=== PATIENT | male | born 1980 | race American Indian/Alaskan Native ===

== ENCOUNTER 2022-02-23 23:13 | Emergency (ER) | payer SELFPAY ==
[2022-02-24 05:22] LABS: Color,Urine Yellow (Yellow)
[2022-02-24 05:24] LABS: Mucus,Urine FEW /HPF; WBC,Urine < 1.0 /HPF (0.0-6.0)
[2022-02-24 05:25] LABS: Amphetamine Screen,Urine Negative; Benzodiazepines Screen,Urine Negative; Cocaine Screen,Urine Negative; Methadone Screen,Urine Negative; Opiate Screen,Urine Negative
[2022-02-24 05:32] LABS: Basophils % (Auto) 0.7 % (0.0-1.8); Eosinophils # (Auto) 0.3 K/mm3 (0.0-0.4); Hematocrit 48.3 % (35.5-45.6); Hemoglobin 16.3 gm/dl (11.8-15.2); Lymphocytes # (Auto) 1.7 K/mm3 (1.2-5.4); Lymphocytes % (Auto) 24.1 % (13.4-35.0); Mean Corpuscular HGB Conc 34 % (32-34); Mean Corpuscular Volume 93 fl (84-94); Monocytes # (Auto) 0.6 K/mm3 (0.0-0.8); Monocytes % (Auto) 9.3 % (0.0-7.3); Platelet Count 302 K/mm3 (140-440); Red Blood Count 5.22 M/mm3 (3.65-5.03); Red Cell Distribution Width 13.9 % (13.2-15.2)
[2022-02-24 05:39] LABS: BUN/Creatinine Ratio 10; Blood Urea Nitrogen 10 mg/dL (9-20); Calcium 11.1 mg/dL (8.4-10.2); Hemolysis Index 20
[2022-02-24 05:47] LABS: Cannabinoid Screen,Urine Positive
--- NOTE | 2022-02-24 07:56 | Emergency Department Report ---
HPI - General Chief Complaint: Psych Time Seen by Provider: 02/24/22 07:43 - HPI HPI: Room 15 The patient is a 41-year-old male present with chief complaint of "I was not thinking right." Patient states since yesterday "I did not know if I wanted to hurt myself or hurt someone else." Patient denies any attempts at harming himself. Patient denies having a plan to hurt himself. Patient states he has not had any psychiatric medications since he was a teenager ED Past Medical Hx - Past Medical History Previous Medical History?: No Hx Psychiatric Treatment: Yes (schizoprenia, bipolar, depression) Hx Asthma: Yes - Surgical History Past Surgical History?: No - Family History Family history: no significant - Social History Smoking Status: Current Every Day Smoker (1 pack/day) Substance Use Type: Alcohol (Moderate), Marijuana - Medications Home Medications: Home Medications Medication Instructions Recorded Confirmed Last Taken Type risperiDONE [RisperDAL] 0.5 mg PO BID #60 02/24/22 Unknown Rx traZODone [Desyrel] 50 mg PO QHS #30 tab 02/24/22 Unknown Rx ED Review of Systems ROS: Stated complaint: MENTAL EVAL Other details as noted in HPI Constitutional: no symptoms reported Eyes: denies: eye pain ENT: denies: throat pain Respiratory: no symptoms reported Cardiovascular: denies: chest pain Endocrine: no symptoms reported Gastrointestinal: denies: abdominal pain Genitourinary: denies: dysuria Musculoskeletal: denies: back pain Neurological: denies: headache Psychiatric: homicidal thoughts, suicidal thoughts Physical Exam - Physical Exam Vital Signs: Vital Signs 02/23/22 02/24/22 02/24/22 23:58 05:55 05:56 Temperature 97.0 F L 98.0 F Pulse Rate 67 Respiratory 18 Rate Blood Pressure 130/78 O2 Sat by Pulse 100 98 Oximetry Physical Exam: GENERAL: The patient is well-developed well-nourished male lying on stretcher not appearing to be in acute distress. [] HEENT: Normocephalic. Atraumatic. Extraocular motions are intact. Patient has moist mucous membranes. NECK: Supple. Trachea midline CHEST/LUNGS: Clear to auscultation. There is no respiratory distress noted. HEART/CARDIOVASCULAR: Regular. There is no tachycardia. There is no gallop rub or murmur. ABDOMEN: Abdomen is soft, nontender. Patient has normal bowel sounds. There is no abdominal distention. SKIN: There is no rash. There is no edema. There is no diaphoresis. NEURO: The patient is awake, alert, and oriented. The patient is cooperative. The patient has no focal neurologic deficits. The patient has normal speech and gait. GCS 15 MUSCULOSKELETAL: There is no evidence of acute injury. ED Course Vital Signs 02/23/22 02/24/22 02/24/22 23:58 05:55 05:56 Temperature 97.0 F L 98.0 F Pulse Rate 67 Respiratory 18 Rate Blood Pressure 130/78 O2 Sat by Pulse 100 98 Oximetry ED Medical Decision Making - Lab Data Result diagrams: 02/24/22 04:56 02/24/22 04:56 - Medical Decision Making MH note reviewed and appreciated - Differential Diagnosis Schizophrenia, suicidal ideation, homicidal ideation Critical care attestation.: If time is entered above; I have spent that time in minutes in the direct care of this critically ill patient, excluding procedure time. ED Disposition Clinical Impression: Schizophrenia, Suicidal ideation, Homicidal ideation Disposition: 01 HOME / SELF CARE / HOMELESS Is pt being admited?: No Does the pt Need Aspirin: No Condition: Stable Instructions: Suicidal Feelings: How to Help Yourself Additional Instructions: OUTPATIENT MENTAL HEALTH RESOURCES [facility], [facility] Hamilton Pittman MD: [address] [place] [address] [place] [address] [place] [facility]: [facility] [address] [place] [address] [place] [address] [phone] [facility]: [facility]: [address] [facility] [address] [facility] [place] [address] [facility] [id number] [facility]: Isrrael Bustos MD: [address] [facility] [place] [address] [facility] [id number] [facility]: [address] [place] [address] [phone] [place] CRISIS AND ACCESS LINE: Professional and Agency Contacts To help Resolve Crises (20/01) [place] Crisis Line: Suicide Prevention Line: Crisis Text Line: Text START to 623690 Emergency: 911 Outpatient COMMUNITY Behavioral Health Resources: [facility]: [facility] [address] [place], [place] [address] [facility] [address] [place] [address] Friday thru Friday - 8am - 5pm Call to schedule an assessment for mental health and substance abuse programs [facility] Address: [address] [place] [address] Friday thru Friday- 7am-2pm [facility] Address: [address] [place] [address] Friday thru Friday: 8:30AM-5PM Prescriptions: traZODone [Desyrel] 50 mg PO QHS #30 tab risperiDONE [RisperDAL] 0.5 mg PO BID #60 Time of Disposition: 11:42
--- NOTE | 2022-02-24 10:42 | Consultation ---
History of Present Illness - Reason for Consult Consult date: 02/24/22 Reason for consult: SI/HI - History of Present Psychiatric Illness The patient was seen today. He is calm and cooperative. I'm not sure how forthcoming this patient is. His story is vague and doesn't make a lot of sense. The patient says he came to the ER because he wanted to hurt himself and other people. I ask the patient why did he feel this way, he replies "I don't know. I guess my mental health." I ask the patient if there were any triggers or reasons like fight or breakup with spouse, lost job or drugs. He says "no, I don't know why. My mental health I guess." The patient says he is from [place] he says he drove to [place] and doesn't have family here. I ask the patient why did he come to [place], he replies "I heard a voice telling me they are coming to get me." I ask him, why did he chose [place], he says "I told you, they said somebody was coming to get me. So I just got in my car and drove." He says this experience happened one other time in recent years. He says he has a history of schizophrenia and bipolar, but hadn't been on meds since he was a teenager. The patient denies any illicit drug use, outside of THC. He uses alcohol occasionally and does nicotine use. He denies feeling SI/HI or any hallucinations of any kind. The patient asks how long was he going to be kept. He then says "if it could be about three days that will be good. I can get my medication." REVIEW OF SYSTEMS Constitutional: Negative for weight loss ENT: Negative for stridor Respiratory: Negative for cough or hemoptysis All other systems reviewed and are negative MENTAL STATUS EXAMINATION General Appearance and Behavior: Age appropriate, good hygiene, calm and cooperative Cooperation: cooperative Psychomotor Behavior: Psychomotor normal, Mood: okay Affect and affective range: congruent with stated mood Thought Process: goal directed Thought Content: None Speech: normal rate and volume Suicidal Ideation: Denies Homicidal Ideation: Denies Hallucinations: Denies Delusions: None elicited Impulse Control: Normal Insight and Judgment: Limited Memory: Limited Attention:Attentive Orientation: Aox3 Assessment and Plan (1) Hx of Schizophrenia Treatment Plan d/c 1013 Please give the patient first dose of risperidone prior to leaving Risperidone 0.5mg po BID Trazodone 50mg po qhs Risks, benefits and alternatives of medications discussed with the patient, questions answered and consent obtained from patient. PSYCHOTHERAPY: Supportive psychotherapy provided MEDICAL: Per primary team DELIRIUM PRECAUTIONS: Please re-orient patient frequently, keep lights on during the day, and minimize benzodiazepines and opiates as these medications could worsen patient's confusion. CITY RECORDER: Defer to primary DISPOSITION: Do not recommend acute inpatient psychiatric hospitalization at this time. The patient understands that if SI/HI arise he should seek immediate assistance. The associate professor of education to further discuss safety plan and give the patient all necessary resources FOLLOW-UP: Will sign off Thank you for the consult. Please contact with any questions and/or concerns Case discussed with Dr. Garcia who agrees with current disposition Medications and Allergies Allergies Allergy/AdvReac Type Severity Reaction Status Date / Time shellfish derived Allergy Hives Verified 02/24/22 04:46 Home Medications Medication Instructions Recorded Confirmed Last Taken Type risperiDONE [RisperDAL] 0.5 mg PO BID #60 02/24/22 Unknown Rx traZODone [Desyrel] 50 mg PO QHS #30 tab 02/24/22 Unknown Rx Mental Status Exam - Vital signs Last Vital Signs Temp 98.0 F 02/24/22 05:56 Pulse 67 02/23/22 23:58 Resp 18 02/23/22 23:58 BP 130/78 02/23/22 23:58 Pulse Ox 98 02/24/22 05:55 Results Result Diagrams: 02/24/22 04:56 02/24/22 04:56 Abnormal lab results 02/24/22 02/24/22 02/24/22 Range/Units 04:56 04:56 04:56 RBC 5.22 H (3.65-5.03) M/mm3 Hgb 16.3 H (11.8-15.2) gm/dl Hct 48.3 H (35.5-45.6) % [place] % (Auto) 9.3 H (0.0-7.3) % Glucose 111 H (75-100) mg/dL Calcium 11.1 H (8.4-10.2) mg/dL Salicylates < 0.3 L (2.8-20.0) mg/dL Acetaminophen (10.0-30.0) ug/mL 02/24/22 Range/Units 04:56 RBC (3.65-5.03) M/mm3 Hgb (11.8-15.2) gm/dl Hct (35.5-45.6) % [place] % (Auto) (0.0-7.3) % Glucose (75-100) mg/dL Calcium (8.4-10.2) mg/dL Salicylates (2.8-20.0) mg/dL Acetaminophen 5.0 L (10.0-30.0) ug/mL All other labs normal.
[2022-02-24] MEDS ORDERED: risperiDONE 0.25 MG TAB PO SCH (11:00)
[2022-02-24 11:15] VITALS: BP 100/60
[2022-02-24] MEDS ORDERED: traZODone 50 MG TAB PO SCH (22:00)
== END 2022-02-24 12:49 | disposition home or self-care (01) ==
LOC: ED 23:13
DX: F20.9 Schizophrenia, unspecified (principal); R45.851 Suicidal ideations; R45.850 Homicidal ideations; Z20.822 Contact with and (suspected) exposure to COVID-19; F17.200 Nicotine dependence, unspecified, uncomplicated; F10.20 Alcohol dependence, uncomplicated; F12.90 Cannabis use, unspecified, uncomplicated
CPT/HCPCS: 36415; 80048; 80307; 81001; 85025; 99284; U0003; 80320; G0480

== ENCOUNTER 2022-02-25 22:53 | Emergency (ER) | payer SELFPAY ==
[2022-02-26 00:03] LABS: Basophils # (Auto) 0.1 K/mm3 (0.0-0.1); Eosinophils # (Auto) 0.2 K/mm3 (0.0-0.4); Hematocrit 47.9 % (35.5-45.6); Hemoglobin 16.4 gm/dl (11.8-15.2); Lymphocytes # (Auto) 1.6 K/mm3 (1.2-5.4); Lymphocytes % (Auto) 24.7 % (13.4-35.0); Mean Corpuscular HGB Conc 34 % (32-34); Mean Corpuscular Volume 92 fl (84-94); Monocytes # (Auto) 0.6 K/mm3 (0.0-0.8); Monocytes % (Auto) 9.3 % (0.0-7.3); Platelet Count 299 K/mm3 (140-440); Red Blood Count 5.21 M/mm3 (3.65-5.03); Red Cell Distribution Width 13.5 % (13.2-15.2)
[2022-02-26 00:11] LABS: BUN/Creatinine Ratio 14; Blood Urea Nitrogen 14 mg/dL (9-20); Calcium 10.2 mg/dL (8.4-10.2); Hemolysis Index 6
--- NOTE | 2022-02-26 07:54 | Emergency Department Report ---
HPI - General Chief Complaint: Psych Time Seen by Provider: 02/26/22 07:44 - HPI HPI: Room 15 The patient is a 41-year-old male present with a chief complaint of suicidal homicidal ideation. Patient was recently seen in this ED by myself and psych for the same. Patient states he has been compliant with his Risperdal since discharge. Patient states at home his has been adding extra stress over the past 2 days he is again had thoughts of hurting anyone and has had suicidal ideation. Patient denies any attempts at harm himself states he thought of several ways he would 1 of which is taking pills. ED Past Medical Hx - Past Medical History Hx Psychiatric Treatment: Yes (schizoprenia, bipolar, depression) Hx Asthma: Yes - Surgical History Past Surgical History?: No - Family History Family history: no significant - Social History Smoking Status: Current Every Day Smoker (1 pack/day) Substance Use Type: Alcohol (Moderate), Marijuana - Medications Home Medications: Home Medications Medication Instructions Recorded Confirmed Last Taken Type risperiDONE [RisperDAL] 0.5 mg PO BID #60 02/24/22 Unknown Rx traZODone [Desyrel] 50 mg PO QHS #30 tab 02/24/22 Unknown Rx ED Review of Systems ROS: Stated complaint: MENTAL HEALTH Other details as noted in HPI Constitutional: no symptoms reported Eyes: denies: eye pain ENT: denies: throat pain Respiratory: no symptoms reported Cardiovascular: denies: chest pain Endocrine: no symptoms reported Gastrointestinal: denies: abdominal pain Genitourinary: denies: dysuria Musculoskeletal: denies: back pain Neurological: denies: headache Psychiatric: homicidal thoughts, suicidal thoughts Physical Exam - Physical Exam Vital Signs: Vital Signs 02/25/22 02/26/22 23:06 06:25 Temperature 98.0 F 97.7 F Pulse Rate 86 46 L Respiratory 18 18 Rate Blood Pressure 148/90 Blood Pressure 125/76 [Left] O2 Sat by Pulse 99 98 Oximetry Physical Exam: GENERAL: The patient is well-developed well-nourished male lying in chair not appearing to be in acute distress. [] HEENT: Normocephalic. Atraumatic. Extraocular motions are intact. Patient has moist mucous membranes. NECK: Supple. Trachea midline CHEST/LUNGS: Clear to auscultation. There is no respiratory distress noted. HEART/CARDIOVASCULAR: Regular. There is no tachycardia. There is no gallop rub or murmur. ABDOMEN: Abdomen is soft, nontender. Patient has normal bowel sounds. There is no abdominal distention. SKIN: There is no rash. There is no edema. There is no diaphoresis. NEURO: The patient is awake, alert, and oriented. The patient is cooperative. The patient has no focal neurologic deficits. The patient has normal speech. GCS 15 MUSCULOSKELETAL: There is no evidence of acute injury. ED Course Vital Signs 02/25/22 02/26/22 23:06 06:25 Temperature 98.0 F 97.7 F Pulse Rate 86 46 L Respiratory 18 18 Rate Blood Pressure 148/90 Blood Pressure 125/76 [Left] O2 Sat by Pulse 99 98 Oximetry ED Medical Decision Making - Lab Data Result diagrams: 02/25/22 23:29 02/25/22 23:29 Laboratory Tests 02/25/22 02/25/22 02/25/22 23:29 23:29 23:29 WBC RBC Hgb Hct MCV MCH MCHC RDW Plt Count Lymph % (Auto) [place] % (Auto) Eos % (Auto) Baso % (Auto) Lymph # (Auto) [place] # (Auto) Eos # (Auto) Baso # (Auto) Seg Neutrophils % Seg Neutrophils # Sodium 139 Potassium 4.6 Chloride 101.7 Carbon Dioxide 25 Anion Gap 17 BUN 14 Creatinine 1.0 Estimated GFR > 60 BUN/Creatinine Ratio 14 Glucose 94 Calcium 10.2 Salicylates < 0.3 L Acetaminophen 5.0 L Plasma/Serum Alcohol 02/25/22 02/25/22 23:29 23:29 WBC 6.5 RBC 5.21 H Hgb 16.4 H Hct 47.9 H MCV 92 MCH 32 MCHC 34 RDW 13.5 Plt Count 299 Lymph % (Auto) 24.7 [place] % (Auto) 9.3 H Eos % (Auto) 3.0 Baso % (Auto) 1.0 Lymph # (Auto) 1.6 [place] # (Auto) 0.6 Eos # (Auto) 0.2 Baso # (Auto) 0.1 Seg Neutrophils % 62.0 Seg Neutrophils # 4.0 Sodium Potassium Chloride Carbon Dioxide Anion Gap BUN Creatinine Estimated GFR BUN/Creatinine Ratio Glucose Calcium Salicylates Acetaminophen Plasma/Serum Alcohol < 0.01 - Differential Diagnosis Suicidal ideation, homicidal ideation Critical care attestation.: If time is entered above; I have spent that time in minutes in the direct care of this critically ill patient, excluding procedure time. ED Disposition Clinical Impression: Schizophrenia, Suicidal ideation, Homicidal ideation Disposition: [address] [place] [address] Is pt being admited?: No Does the pt Need Aspirin: No Condition: Stable Referrals: STU NEWTON MD [Primary Care Provider] - 3-5 Days Time of Disposition: 11:43 (Awaiting placement)
--- NOTE | 2022-02-26 10:28 | Progress Note ---
Subjective - Reason for Consult Consult date: 02/26/22 Reason for consult: SI/HI - Chief Complaint Chief complaint: The patient was seen today. He was just treated and cleared by psych a couple of days ago. The patient says he came back to the hospital because he is stressed and having problems with his . He says his anger is getting the best of him, and if he doesn't get help he is going to hurt her or himself. He says he can no longer take it, and he goes back and forth from wanting to hurt himself and other people. The patient says, "I'm going back to [place] but I gotta get help, if not I'm going to hurt somebody." The patient says he is having visions of him hurting his and himself. REVIEW OF SYSTEMS Constitutional: Negative for weight loss ENT: Negative for stridor Respiratory: Negative for cough or hemoptysis All other systems reviewed and are negative MENTAL STATUS EXAMINATION General Appearance and Behavior: Age appropriate, good hygiene, calm and cooperative Cooperation: cooperative Psychomotor Behavior: Psychomotor normal, Mood: stressed Affect and affective range: congruent with stated mood Thought Process: goal directed Thought Content: hallucinations, SI/HI Speech: normal rate and volume Suicidal Ideation: Yes Homicidal Ideation: Yes Hallucinations: Visual Delusions: None elicited Impulse Control: Normal Insight and Judgment: Limited Memory: Limited Attention:Attentive Orientation: A/o x 3 Assessment and Plan (1) Schizophrenia Treatment Plan Risperidone 0.5mg po BID Trazodone 50mg po qhs Depakote DR 125mg po BID Risks, benefits and alternatives of medications discussed with the patient, questions answered and consent obtained from patient. PSYCHOTHERAPY: Supportive psychotherapy provided MEDICAL: Per primary team DELIRIUM PRECAUTIONS: Please re-orient patient frequently, keep lights on during the day, and minimize benzodiazepines and opiates as these medications could worsen patient's confusion. ROTARY DRIER: Defer to primary DISPOSITION: Recommend acute psychiatric inpatient treatment FOLLOW-UP: Will follow. Thanks Thank you for the consult. Please contact with any questions and/or concerns Case discussed with Dr. Garcia Mental Status Exam - Vital signs Last Vital Signs Temp 98.3 F 02/26/22 10:13 Pulse 74 02/26/22 10:13 Resp 16 02/26/22 10:13 BP 147/72 02/26/22 10:13 Pulse Ox 100 02/26/22 10:13
[2022-02-26] MEDS ORDERED: DIVALPROEX DR 125 MG TAB PO SCH (11:00)
[2022-02-26] MEDS ORDERED: risperiDONE 0.25 MG TAB PO SCH (11:00)
[2022-02-26] MEDS ORDERED: traZODone 50 MG TAB PO SCH (22:00)
[2022-02-27 09:27] LABS: Mucus,Urine FEW /HPF; WBC,Urine < 1.0 /HPF (0.0-6.0)
[2022-02-27 09:30] LABS: Color,Urine Yellow (Yellow); RBC,Urine < 1.0 /HPF (0.0-6.0)
[2022-02-27 09:31] LABS: Amphetamine Screen,Urine Negative; Benzodiazepines Screen,Urine Negative; Cocaine Screen,Urine Negative; Methadone Screen,Urine Negative; Opiate Screen,Urine Negative
[2022-02-27 09:50] LABS: Cannabinoid Screen,Urine Positive
--- NOTE | 2022-02-27 10:20 | Progress Note ---
Subjective - Reason for Consult Consult date: 02/27/22 Reason for consult: SI/HI - Chief Complaint Chief complaint: The patient was seen today. He states he is much better today. He says "I'm tired, and just waking up, but a lot better." The patient denies SI/HI. He says "no, not now. I'm just waking up. Not thinking about that." He denies hallucinations of any kind. Will not longer recommend acute psychiatric inpatient treatment. He can now be managed on any outpatient basis. REVIEW OF SYSTEMS Constitutional: Negative for weight loss ENT: Negative for stridor Respiratory: Negative for cough or hemoptysis All other systems reviewed and are negative MENTAL STATUS EXAMINATION General Appearance and Behavior: Age appropriate, good hygiene, calm and cooperative Cooperation: cooperative Psychomotor Behavior: Psychomotor normal, Mood: better Affect and affective range: congruent with stated mood Thought Process: goal directed Thought Content: None Speech: normal rate and volume Suicidal Ideation: Denies Homicidal Ideation: Denies Hallucinations: Denies Delusions: None elicited Impulse Control: Normal Insight and Judgment: Limited Memory: Limited Attention:Attentive Orientation: A/o x 3 Assessment and Plan (1) Schizophrenia Treatment Plan Continue med prescribed the other day Depakote DR 125mg po BID Risks, benefits and alternatives of medications discussed with the patient, questions answered and consent obtained from patient. PSYCHOTHERAPY: Supportive psychotherapy provided MEDICAL: Per primary team DELIRIUM PRECAUTIONS: Please re-orient patient frequently, keep lights on during the day, and minimize benzodiazepines and opiates as these medications could worsen patient's confusion. TOPOGRAPHY TECHNICIAN: Defer to primary DISPOSITION: Do not recommend acute psychiatric inpatient treatment. The patient understands that if SI/HI reoccur he is to seek immediate assistance FOLLOW-UP: Will sign off. Thanks Thank you for the consult. Please contact with any questions and/or concerns Case discussed with Dr. Garcia Mental Status Exam - Vital signs Last Vital Signs Temp 98.6 F 02/26/22 20:35 Pulse 57 L 02/26/22 20:35 Resp 18 02/26/22 20:35 BP 109/62 02/26/22 20:35 Pulse Ox 99 02/27/22 08:59
[2022-02-27 10:54] VITALS: BP 116/58
--- NOTE | 2022-02-27 12:31 | Event Note ---
Date: 02/27/22 The patient was evaluated in the emergency department for symptoms described in the history of present illness. He/she was evaluated in the context of the global COVID-19 pandemic, which necessitated consideration that the patient might be at risk for infection with the virus that causes COVID-19. Institutional protocols and algorithms that pertain to the evaluation of patients at risk for COVID-19 are in a state of rapid change based on information released by regulatory bodies including the CDC and federal and state organizations. These policies and algorithms were followed during the patient's care in the emergency department. Please note that these policies, procedures and recommendations changed on a rapid basis. Laboratory studies, vital signs, nursing documentation, ER documentation, and psychiatric documentation are reviewed and appreciated. Nursing team reports no acute events this morning or concerns. The patient is awake and ambulating and does not appear to be in any acute distress. The patient was deemed medically suitable for psychiatric disposition and placement during his initial ER evaluation. The patient continues to remain medically suitable for psychiatric placement and disposition. He is currently pending psychiatric placement. The psychiatric team have recommended that he does not meet criteria for 1013 hold or involuntary psychiatric hospitalization at this time. He will therefore be discharged with outpatient resources. Vital Signs 02/25/22 02/26/22 02/26/22 23:06 06:25 10:13 Temperature 98.0 F 97.7 F 98.3 F Pulse Rate 86 46 L 74 Respiratory 18 18 16 Rate Blood Pressure 148/90 Blood Pressure 125/76 147/72 [Left] O2 Sat by Pulse 99 98 100 Oximetry 02/26/22 02/27/22 02/27/22 20:35 08:59 10:53 Temperature 98.6 F 98.4 F Pulse Rate 57 L 61 Respiratory 18 18 Rate Blood Pressure Blood Pressure 109/62 116/58 [Left] O2 Sat by Pulse 99 99 99 Oximetry Lab Results 02/25/22 02/25/22 02/25/22 Range/Units 23:29 23:29 23:29 WBC (4.5-11.0) K/mm3 RBC (3.65-5.03) M/mm3 Hgb (11.8-15.2) gm/dl Hct (35.5-45.6) % MCV (84-94) fl MCH (28-32) pg MCHC (32-34) % RDW (13.2-15.2) % Plt Count (140-440) K/mm3 Lymph % (Auto) (13.4-35.0) % [place] % (Auto) (0.0-7.3) % Eos % (Auto) (0.0-4.3) % Baso % (Auto) (0.0-1.8) % Lymph # (Auto) (1.2-5.4) K/mm3 [place] # (Auto) (0.0-0.8) K/mm3 Eos # (Auto) (0.0-0.4) K/mm3 Baso # (Auto) (0.0-0.1) K/mm3 Seg Neutrophils % (40.0-70.0) % Seg Neutrophils # (1.8-7.7) K/mm3 Sodium 139 (137-145) mmol/L Potassium 4.6 (3.6-5.0) mmol/L Chloride 101.7 (98-107) mmol/L Carbon Dioxide 25 (22-30) mmol/L Anion Gap 17 mmol/L BUN 14 (9-20) mg/dL Creatinine 1.0 (0.8-1.3) mg/dL Estimated GFR > 60 ml/min BUN/Creatinine Ratio 14 % Glucose 94 (75-100) mg/dL Calcium 10.2 (8.4-10.2) mg/dL Urine Color (Yellow) Urine Turbidity (Clear) Specific [place] (Man) (1.003-1.030) Ur Protein (Man) (Negative) mg/dL Ur Ketones (Man) (Negative) Ur Nitrite (Man) (Negative) Urine Bilirubin (Man) (Negative) Leukocyte Esterase (Man) (Negative) Urine WBC (Auto) (0.0-6.0) /HPF Urine RBC (Auto) (0.0-6.0) /HPF Urine RBC (Manual) (Negative) Urine Mucus /HPF Salicylates < 0.3 L (2.8-20.0) mg/dL Urine Opiates Screen Urine Methadone Screen Acetaminophen 5.0 L (10.0-30.0) ug/mL Ur Barbiturates Screen Ur Phencyclidine Scrn Ur Amphetamines Screen U Benzodiazepines Scrn Urine Cocaine Screen U Marijuana (THC) Screen Drugs of Abuse Note Plasma/Serum Alcohol (0-0.07) % SARS-CoV-2 (PCR) (Negative) 02/25/22 02/25/22 02/27/22 Range/Units 23:29 23:29 08:30 WBC 6.5 (4.5-11.0) K/mm3 RBC 5.21 H (3.65-5.03) M/mm3 Hgb 16.4 H (11.8-15.2) gm/dl Hct 47.9 H (35.5-45.6) % MCV 92 (84-94) fl MCH 32 (28-32) pg MCHC 34 (32-34) % RDW 13.5 (13.2-15.2) % Plt Count 299 (140-440) K/mm3 Lymph % (Auto) 24.7 (13.4-35.0) % [place] % (Auto) 9.3 H (0.0-7.3) % Eos % (Auto) 3.0 (0.0-4.3) % Baso % (Auto) 1.0 (0.0-1.8) % Lymph # (Auto) 1.6 (1.2-5.4) K/mm3 [place] # (Auto) 0.6 (0.0-0.8) K/mm3 Eos # (Auto) 0.2 (0.0-0.4) K/mm3 Baso # (Auto) 0.1 (0.0-0.1) K/mm3 Seg Neutrophils % 62.0 (40.0-70.0) % Seg Neutrophils # 4.0 (1.8-7.7) K/mm3 Sodium (137-145) mmol/L Potassium (3.6-5.0) mmol/L Chloride (98-107) mmol/L Carbon Dioxide (22-30) mmol/L Anion Gap mmol/L BUN (9-20) mg/dL Creatinine (0.8-1.3) mg/dL Estimated GFR ml/min BUN/Creatinine Ratio % Glucose (75-100) mg/dL Calcium (8.4-10.2) mg/dL Urine Color (Yellow) Urine Turbidity (Clear) Specific [place] (Man) (1.003-1.030) Ur Protein (Man) (Negative) mg/dL Ur Ketones (Man) (Negative) Ur Nitrite (Man) (Negative) Urine Bilirubin (Man) (Negative) Leukocyte Esterase (Man) (Negative) Urine WBC (Auto) (0.0-6.0) /HPF Urine RBC (Auto) (0.0-6.0) /HPF Urine RBC (Manual) (Negative) Urine Mucus /HPF Salicylates (2.8-20.0) mg/dL Urine Opiates Screen Urine Methadone Screen Acetaminophen (10.0-30.0) ug/mL Ur Barbiturates Screen Ur Phencyclidine Scrn Ur Amphetamines Screen U Benzodiazepines Scrn Urine Cocaine Screen U Marijuana (THC) Screen Drugs of Abuse Note Plasma/Serum Alcohol < 0.01 (0-0.07) % SARS-CoV-2 (PCR) Negative (Negative) 02/27/22 02/27/22 Range/Units Unknown Unknown WBC (4.5-11.0) K/mm3 RBC (3.65-5.03) M/mm3 Hgb (11.8-15.2) gm/dl Hct (35.5-45.6) % MCV (84-94) fl MCH (28-32) pg MCHC (32-34) % RDW (13.2-15.2) % Plt Count (140-440) K/mm3 Lymph % (Auto) (13.4-35.0) % [place] % (Auto) (0.0-7.3) % Eos % (Auto) (0.0-4.3) % Baso % (Auto) (0.0-1.8) % Lymph # (Auto) (1.2-5.4) K/mm3 [place] # (Auto) (0.0-0.8) K/mm3 Eos # (Auto) (0.0-0.4) K/mm3 Baso # (Auto) (0.0-0.1) K/mm3 Seg Neutrophils % (40.0-70.0) % Seg Neutrophils # (1.8-7.7) K/mm3 Sodium (137-145) mmol/L Potassium (3.6-5.0) mmol/L Chloride (98-107) mmol/L Carbon Dioxide (22-30) mmol/L Anion Gap mmol/L BUN (9-20) mg/dL Creatinine (0.8-1.3) mg/dL Estimated GFR ml/min BUN/Creatinine Ratio % Glucose (75-100) mg/dL Calcium (8.4-10.2) mg/dL Urine Color Yellow (Yellow) Urine Turbidity Slightly cloudy (Clear) Specific [place] (Man) 1.015 (1.003-1.030) Ur Protein (Man) Negative (Negative) mg/dL Ur Ketones (Man) Negative (Negative) Ur Nitrite (Man) Negative (Negative) Urine Bilirubin (Man) Negative (Negative) Leukocyte Esterase (Man) Negative (Negative) Urine WBC (Auto) < 1.0 (0.0-6.0) /HPF Urine RBC (Auto) < 1.0 (0.0-6.0) /HPF Urine RBC (Manual) Negative (Negative) Urine Mucus Few /HPF Salicylates (2.8-20.0) mg/dL Urine Opiates Screen Negative Urine Methadone Screen Negative Acetaminophen (10.0-30.0) ug/mL Ur Barbiturates Screen Negative Ur Phencyclidine Scrn Negative Ur Amphetamines Screen Negative U Benzodiazepines Scrn Negative Urine Cocaine Screen Negative U Marijuana (THC) Screen Positive Drugs of Abuse Note Disclamer Plasma/Serum Alcohol (0-0.07) % SARS-CoV-2 (PCR) (Negative)
== END 2022-02-27 12:51 | disposition home or self-care (01) ==
LOC: ED 22:53
DX: F20.9 Schizophrenia, unspecified (principal); Z20.822 Contact with and (suspected) exposure to COVID-19; R45.850 Homicidal ideations; R45.851 Suicidal ideations; F31.9 Bipolar disorder, unspecified; F17.200 Nicotine dependence, unspecified, uncomplicated; J45.909 Unspecified asthma, uncomplicated; F12.90 Cannabis use, unspecified, uncomplicated; Z79.899 Other long term (current) drug therapy; Z91.013 Allergy to seafood
CPT/HCPCS: 36415; 80048; 80307; 81001; 85025; 99284; U0003; 80320; G0480